=== PATIENT | male | born 1970 | race Caucasian/White ===

== ENCOUNTER 2017-04-23 16:10 | Emergency (ER) | payer OTHER ==
[~2017-04-23] VITALS: Ht 165.1 cm; Wt 65.8 kg
--- NOTE | ~2017-04-23 | CR172 ---
[facility] A Service of [facility] & [facility] RADIOLOGY TEXT RESULTS PATIENT: SANJANA CARREON LOCATION: CFTX : 70 UNIT #: [id number] AGE: [address]: LENKA THOMAS SEX: M ORDER DR: [id number] [facility] [address] [facility] [place] [facility]. [place], [place] [address] [id number] E MR#: [id number] Acc #: [id number] NAME: SANJANA CARREON : 1970 SEX: M STUDY DATE/TIME: 04/23/2017 18:01 UNIT: [facility] ROOM: STUDY DESCRIPTION: CR Knee 3 Views Lt Attending Physician: Lenka Thomas Aprn Ordering Physician: Lenka Thomas Aprn Primary Care Physician: Primary Care Physician No MEDICAL IMAGING REPORT This report is preliminary unless electronic signature is present EXAM Left knee 3 views HISTORY Left lateral knee pain for 3 days. No known injury. FINDINGS AP and lateral projection of the knee shows smooth articular anatomy without indication of fracture or dislocation at the major weight-bearing surface of the knee. There is no indication of radiopaque foreign body about the knee surface or joint effusion. IMPRESSION Normal knee. Dictated by... Cleve Montoya M.D. THIS IS AN ELECTRONICALLY VERIFIED REPORT Cleve Montoya M.D. at 04/24/2017 2:21 PM Miguel TD: 04/23/2017 22:41 JOB #: [id number] MEDICAL IMAGING REPORT Page 1 of 1 COPY
== END 2017-04-23 18:57 | disposition home or self-care (01) ==
LOC: CED 16:10 → CFTX 16:10
DX: M25.562 Pain in left knee (principal); J44.9 Chronic obstructive pulmonary disease, unspecified; F17.210 Nicotine dependence, cigarettes, uncomplicated
CPT/HCPCS: 29530; 73562; 99283